=== PATIENT | female | born 1995 ===

== ENCOUNTER 2020-07-30 00:23 | Emergency (ER) | payer SELFPAY ==
--- OUTSIDE RECORDS SUMMARY | 2020-07-30 00:25 | XMS REPORT | Clinical Summary ---
:1995 Author Organization [facility] Address [address] [place] [address] Care Team Providers Name Role Phone Asked, Pcp Primary Care Provider Unavailable Allergies No Known Active Allergies Medications Not on file Active Problems Not on file Social History Tobacco Use Types Packs/Day Years Used Date Never Smoker Alcohol Use Drinks/Week oz/Week Comments Yes Sex Assigned at Date Recorded Not on file Last Filed Vital Signs Not on file Plan of Treatment Health Maintenance Due Date Last Done Comments CHLAMYDIA SCREENING 2013 CERVICAL CANCER SCREENING 2018 INFLUENZA VACCINE 05/08/2020 Results Not on fileafter 07/30/2019 Advance Directives For more information, please contact: [phone] Type Date Recorded 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
[2020-07-30 02:05] LABS: Absolute Lymphocytes (CBC) 1.2 K/uL (0.7-4.9); Basophils % 0.5 % (0-1.3); Hematocrit 38.6 % (36.0-45.0); Lymphocytes % 16.1 % (15.3-44.8); MPV 8.8 fL (7.6-11.3); RBC Red Blood Cell Count 4.27 M/uL (3.86-4.86)
[2020-07-30 02:07] LABS: Protime INR 1.18
[2020-07-30 02:20] LABS: Barbiturates NEGATIVE (NEGATIVE); Benzodiazepines NEGATIVE (NEGATIVE); Cocaine NEGATIVE (NEGATIVE); METHAMPHETAM NEGATIVE (NEGATIVE); Methadone NEGATIVE (NEGATIVE); Opiates NEGATIVE (NEGATIVE); Phencyclidine NEGATIVE (NEGATIVE); THC Cannibis POSITIVE (NEGATIVE)
[2020-07-30 02:23] LABS: ALT/SGPT 17 U/L (12-78); AST/SGOT 17 U/L (15-37); Albumin 4.3 g/dL (3.4-5.0); Alkaline Phosphatase 72 U/L (45-117); BUN Blood Urea Nitrogen 7 mg/dL (7-18); Bicarbonate 26 mmol/L (21-32); Bilirubin Direct < 0.1 mg/dL (0-0.2); Bilirubin Total 0.2 mg/dL (0.2-1.0); Glucose Level 93 mg/dL (74-106); Potassium 3.8 mmol/L (3.5-5.1); Protein, Total 8.4 g/dL (6.4-8.2); Sodium Level 140 mmol/L (136-145)
[2020-07-30 04:12] LABS: Urine Blood 3+ (NEG); Urine Glucose NEGATIVE (NEG); Urine Protein 3+ (NEG); Urine Specific Gravity >1.030 (1.005-1.030); Urine pH 5.5 (5.0-7.0)
--- NOTE | 2020-07-30 04:41 | EDPHYS ---
Physician Documentation [facility] Name: Jonna Willams Age: 24 yrs Sex: Female : 1995 Arrival Date: 07/30/2020 Time: 00:24 Bed 17 Private MD: ED Physician Lenny Trevino HPI: 07/30 04:50 This 24 yrs old Unknown Female presents to ER via Ambulatory with complaints of tw4 Suicidal Ideation. 04:50 The patient presents to the emergency department with anxiety, over money, over a tw4 relationship, over school, depression, over a , over money, over a relationship. Onset: The symptoms/episode began/occurred today. Past psychiatric history: Prior diagnosis: depression. 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 - Social history:: Smoking status: Patient denies any tobacco usage or history of. Patient uses street drugs, marijuana. ROS: 06:27 Constitutional: Negative for fever, chills, and weight loss, Eyes: Negative for injury, tw4 pain, redness, and discharge, Cardiovascular: Negative for chest pain, palpitations, and edema, Respiratory: Negative for shortness of breath, cough, wheezing, and pleuritic chest pain, Abdomen/GI: Negative for abdominal pain, nausea, vomiting, diarrhea, and constipation, Back: Negative for injury and pain, MS/Extremity: Negative for injury and deformity, Skin: Negative for injury, rash, and discoloration, Neuro: Negative for headache, weakness, numbness, tingling, and seizure. 06:27 Psych: Positive for anxiety, depression, Negative for drug dependence, alcohol dependence, auditory hallucinations, visual hallucinations, homicidal ideation, insomnia, suicide gesture, suicidal ideation. Exam: 06:27 Constitutional: This is a well developed, well nourished patient who is awake, alert, tw4 and in no acute distress. Head/Face: Normocephalic, atraumatic. Chest/axilla: Normal chest wall appearance and motion. Nontender with no deformity. No lesions are appreciated. Cardiovascular: Regular rate and rhythm with a normal S1 and S2. No gallops, murmurs, or rubs. Normal PMI, no JVD. No pulse deficits. Respiratory: Lungs have equal breath sounds bilaterally, clear to auscultation and percussion. No rales, rhonchi or wheezes noted. No increased work of breathing, no retractions or nasal flaring. Abdomen/GI: Soft, non-tender, with normal bowel sounds. No distension or tympany. No guarding or rebound. No evidence of tenderness throughout. Back: No spinal tenderness. No costovertebral tenderness. Full range of motion. Skin: Warm, dry with normal turgor. Normal color with no rashes, no lesions, and no evidence of cellulitis. MS/ Extremity: Pulses equal, no cyanosis. Neurovascular intact. Full, normal range of motion. Neuro: Awake and alert, GCS 15, oriented to person, place, time, and situation. Cranial nerves II-XII grossly intact. Motor strength 5/5 in all extremities. Sensory grossly intact. Cerebellar exam normal. Normal gait. 06:27 Psych: Behavior/mood is pleasant, cooperative, depressed, Affect is calm, Oriented to person, place, time, Patient has no thoughts/intents to harm self or others. Judgement / Insight is normal. Vital Signs: 00:42 BP 119 / 63; Pulse 74; Resp 18; Temp 98.6(O); Pulse Ox 100% on R/A; Weight 54.43 kg; tt3 Height 5 ft. 4 in. (162.56 cm); Pain 0/10; 00:42 Body Mass Index 20.60 (54.43 kg, 162.56 cm) tt3 MDM: 00:45 Patient medically screened. tw4 06:40 Differential diagnosis: depression. Data reviewed: vital signs, nurses notes. Data tw4 interpreted: Pulse oximetry: Interpretation:. Counseling: I had a detailed discussion with the patient and/or guardian regarding: the historical points, exam findings, and any diagnostic results supporting the discharge/admit diagnosis. 07/30 00:29 Order name: Acetaminophen; Complete Time: 03:11 tw4 07/30 03:11 Interpretation: Within normal limits: ACETA < 2.0. tw4 07/30 00:29 Order name: Basic Metabolic Panel; Complete Time: 03:11 tw4 07/30 03:12 Interpretation: Normal except: CL 108; GFR 87. 07/30 00:29 Order name: CBC with Diff; Complete Time: 03:11 07/30 03:12 Interpretation: Normal except: KARTIK% 75.2. 07/30 00:29 Order name: ETOH Level; Complete Time: 03:11 07/30 03:12 Interpretation: Within normal limits: ETOH < 10. 07/30 00:29 Order name: Hepatic Function; Complete Time: 03:11 07/30 03:12 Interpretation: Normal except: TP 8.4; GLOB 4.1; A/G 1.0. 07/30 00:29 Order name: PT-INR; Complete Time: 03:11 07/30 03:12 Interpretation: Normal except: PT 13.9. 07/30 00:29 Order name: Ptt, Activated; Complete Time: 03:11 07/30 03:12 Interpretation: Within normal limits: PTT 34.0. 07/30 00:29 Order name: Salicylate; Complete Time: 03:11 07/30 03:12 Interpretation: Normal except: TODD 2.7. 07/30 00:29 Order name: Urine Drug Screen; Complete Time: 03:11 07/30 03:12 Interpretation: Normal except: THC POSITIVE. 07/30 00:29 Order name: EKG; Complete Time: 00:30 07/30 00:29 Order name: EKG - Nurse/Tech; Complete Time: 01:59 07/30 00:29 Order name: IV Saline Lock; Complete Time: 02:32 07/30 02:19 Order name: Urine Dipstick--Ancillary (enter results); Complete Time: 04:49 07/30 04:49 Interpretation: Normal except: UPROT 3+; UBLD 3+; UKET 1+. 07/30 02:19 Order name: Urine --Ancillary (enter results); Complete Time: 04:49 07/30 04:49 Interpretation: Normal except: USPGR >1.030. 07/30 00:29 Order name: Labs collected and sent; Complete Time: 02:32 07/30 00:29 Order name: Urine Dipstick-Ancillary (obtain specimen); Complete Time: 07/30 00:29 Order name: Urine Test (obtain specimen); Complete Time: EC:39 Rate is 67 beats/min. Rhythm is regular. QRS [place] is Normal. MD interval is normal. QRS tw4 interval is normal. QT interval is normal. No Q waves. T waves are Normal. No ST changes noted. Clinical impression: Sinus arrythmia. Interpreted by me. Reviewed by me. Administered Medications: No medications were administered Disposition: 07/30/20 04:40 Discharged to Home. Impression: Adjustment disorder with depressed mood. - Condition is Stable. - Discharge Instructions: Adjustment Disorder, Adult. - Medication Reconciliation Form, Thank You Letter, Antibiotic Education, Prescription Opioid Use form. - Follow up: Private Physician; When: Upon discharge from the Emergency Department; Reason: Recheck today's complaints, Continuance of care, Re-evaluation by your physician. - Problem is new. - Symptoms have improved. Signatures: Dispatcher [employer] EDAmanda Barros, RN RN Lenny Pizano MD MD tw4 Jing Ramirez RN RN ll2 Corrections: (The following items were deleted from the chart) 04:59 04:40 07/30/2020 04:40 Discharged to Home. Impression: Adjustment disorder with ll2 depressed mood. Condition is Stable. Forms are Medication Reconciliation Form, Thank You Letter, Antibiotic Education, Prescription Opioid Use. Follow up: Private Physician; When: Upon discharge from the Emergency Department; Reason: Recheck today's complaints, Continuance of care, Re-evaluation by your physician. Problem is new. Symptoms have improved. tw4
--- NOTE | 2020-07-30 04:41 | ER ---
Nurse's Notes [facility] Name: Jonna Willams Age: 24 yrs Sex: Female : 1995 Arrival Date: 07/30/2020 Time: 00:24 Bed 17 Private MD: Diagnosis: Adjustment disorder with depressed mood Presentation: 07/30 00:57 Chief complaint: Patient states: she was upset and said she wanted to kill herself so bb her brother called the police who told her to come to the ED pt said she was depressed and she said it but she would not make an attempt to kill herself. If she was going to do it she would have a long time ago. Coronavirus screen: At this time, the client does not indicate any symptoms associated with coronavirus-19. Ebola Screen: No symptoms or risks identified at this time. Initial Sepsis Screen: Does the patient meet any 2 criteria? No. Patient's initial sepsis screen is negative. Does the patient have a suspected source of infection? No. Patient's initial sepsis screen is negative. Risk Assessment: Do you want to hurt yourself or someone else? Patient reports no desire to harm self or others. Onset of symptoms is unknown. 00:57 Method Of Arrival: Ambulatory bb 00:57 Acuity: MILLICENT 2 bb 01:03 Note pt states she is trying to build a relationship with her mom and just needs her bb mom. Triage Assessment: 01:01 General: Appears in no apparent distress. Behavior is cooperative, crying. Pain: Denies bb pain. Neuro: Level of Consciousness is awake, alert, obeys commands, Oriented to person, place, time, situation. Cardiovascular: No deficits noted. Respiratory: Respiratory effort is even, unlabored, Respiratory pattern is regular. GI: No signs and/or symptoms were reported involving the gastrointestinal system. Derm: Skin is dry, Skin is normal, Skin temperature is warm. Musculoskeletal: Circulation, motion, and sensation intact. 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 - Social history:: Smoking status: Patient denies any tobacco usage or history of. Patient uses street drugs, marijuana. Screenin:04 Abuse screen: Denies threats or abuse. Nutritional screening: No deficits noted. bb Tuberculosis screening: No symptoms or risk factors identified. Fall Risk None identified. Assessment: 01:04 Reassessment: No changes from previously documented assessment. see triage assessment. bb 01:30 Reassessment: Dr Trevino at bedside for pt evaluation. bb 01:50 General: Appears in no apparent distress. Behavior is calm, cooperative, appropriate ea for age, Pt denies SI and HI. . Neuro: Level of Consciousness is awake, alert, obeys commands, Oriented to person, place, time, situation. Respiratory: Airway is patent Respiratory effort is even, unlabored, Respiratory pattern is regular, symmetrical. Derm: Skin is pink, warm \T\ dry. 02:50 Reassessment: Patient and/or family updated on plan of care and expected duration. Pain ea level reassessed. Patient is alert, oriented x 3, equal unlabored respirations, skin warm/dry/pink. 04:00 Reassessment: Patient and/or family updated on plan of care and expected duration. Pain ll2 level reassessed. Patient is alert, oriented x 3, equal unlabored respirations, skin warm/dry/pink. Psych: 01:02 Subjective: Patient's mood is sad. Objective: Patient is cooperative, Speech is normal, bb Affect is appropriate. Interventions: Removed personal items and placed in bag. Patient placed in hospital gown. Suicide Risk Assessment: Sad Person Scale: Sex of patient: Female: Score 0 points. Age of patient: Score 1 point if patient 15-34. Depression: Score 1 point if signs of depression are present. Social Support: Score 1 point if social support is lacking and/or unavailable. TOTAL POINTS: If total points are 3-4, proposed clinical action is close follow-up/consider hospitalization. 01:50 Safety Checks: Personal items have been removed. Door is open. No visitors are present ea at this time. Pt denies substance abuse. 02:31 Commitment: Pt denies SI. ea Vital Signs: 00:42 BP 119 / 63; Pulse 74; Resp 18; Temp 98.6(O); Pulse Ox 100% on R/A; Weight 54.43 kg; tt3 Height 5 ft. 4 in. (162.56 cm); Pain 0/10; 00:42 Body Mass Index 20.60 (54.43 kg, 162.56 cm) tt3 ED Course: 00:24 Patient arrived in ED. am2 00:29 Lenny Trevino MD is Attending Physician. tw4 01:01 Triage completed. bb 01:01 Arm band placed on Patient placed in an exam room, on a stretcher. bb 01:04 Patient has correct armband on for positive identification. bb 02:00 Urine collected: clean catch specimen, cloudy, blood tinged, EKG done, by ED staff, tt3 reviewed by Lenny Trevino MD. 03:00 No provider procedures requiring assistance completed. Inserted saline lock: 22 gauge ll2 in right antecubital area, using aseptic technique. IV discontinued, intact, bleeding controlled, No redness/swelling at site. Pressure dressing applied. 03:59 Pt talking to zulily screener via iPad. tt3 Administered Medications: No medications were administered Outcome: 04:40 Discharge ordered by . tw4 04:58 Discharged to home ambulatory. ll2 04:58 Condition: stable 04:58 Discharge instructions given to patient, Instructed on discharge instructions, follow up and referral plans. Demonstrated understanding of instructions, follow-up care. 04:59 Patient left the ED. ll2 Signatures: Amanda Mai, RN RN Lexi Polanco am2 Nae Tamayo, RN eLnny Styles ea, MD MD tw4 Jing Ramirez RN RN ll2 Marvel Medina tt3
[2020-07-30 05:22] VITALS: BP 119/63; TEMP 98.6; O2SAT 100
--- NOTE | 2020-07-31 09:34 | EKG ---
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
== END 2020-07-30 04:59 | disposition home or self-care (01) ==
LOC: ER 00:23
DX: F43.21 Adjustment disorder with depressed mood (principal)
CPT/HCPCS: 36415; 80048; 80076; 80307; 80320; 80329; 81003; 81025; 85025; 85610; 85730; 93005; 99284

== ENCOUNTER 2021-10-01 03:35 | Emergency (ER) | payer OTHER ==
[2021-10-01 04:09] LABS: Urine Blood Negative (Negative); Urine Glucose Negative (Negative); Urine Protein Negative (Negative); Urine pH 6.5 (5.0-7.0)
[2021-10-01] MEDS ORDERED: MORPHINE 2 MG/ML SYR ONE (04:43)
[2021-10-01] MEDS ORDERED: CEFTRIAXONE 1000 MG/VIAL ONE (04:43)
[2021-10-01] MEDS ORDERED: NA CHLORIDE 0.9% 1,000 ML ONE (04:44)
[2021-10-01] MEDS ORDERED: ONDANSETRON 4 MG/2 ML VIAL ONE (04:44)
[2021-10-01] MEDS ORDERED: NA CHLORIDE 0.9% 50 ML ONE (04:44)
[2021-10-01 04:47] LABS: Absolute Lymphocytes (CBC) 2.5 K/uL (0.7-4.9); Basophils % 0.1 % (0-1.3); Hematocrit 36.3 % (36.0-45.0); Lymphocytes % 36.3 % (15.3-44.8); MPV 8.1 fL (7.6-11.3); RBC Red Blood Cell Count 4.07 M/uL (3.86-4.86)
[2021-10-01 05:02] LABS: ALT/SGPT 17 U/L (12-78); AST/SGOT 10 U/L (15-37); Albumin 3.7 g/dL (3.4-5.0); Alkaline Phosphatase 67 U/L (45-117); BUN Blood Urea Nitrogen 7 mg/dL (7-18); Bicarbonate 27 mmol/L (21-32); Bilirubin Direct < 0.1 mg/dL (0-0.2); Bilirubin Total 0.2 mg/dL (0.2-1.0); Glucose Level 80 mg/dL (74-106); Lipase 72 U/L (73-393); Potassium 3.6 mmol/L (3.5-5.1); Protein, Total 7.8 g/dL (6.4-8.2); Sodium Level 140 mmol/L (136-145)
[2021-10-01] MEDS ORDERED: CIPROFLOXACIN HCL 500 MG TAB ONE (05:27)
--- NOTE | 2021-10-01 07:00 | RAD REPORT ---
EXAM DESCRIPTION: CTAbdomen Pelvis W Contrast - 10/01/2021 6:44 am CLINICAL HISTORY: ABD PAIN COMPARISON: No comparisonsTransvaginal Study Probe dated 10/01/2021 TECHNIQUE: CT of the abdomen and pelvis was performed. All CT scans are performed using dose optimization technique as appropriate and may include automated exposure control or mA/KV adjustment according to patient size. FINDINGS: Lower chest: No acute abnormality. Liver: No acute abnormality or suspicious lesions. Biliary: No biliary ductal dilatation. Stomach: No significant focal abnormality. Duodenum: No significant focal abnormality. Pancreas: No significant abnormality. Spleen: No significant abnormality. Adrenal: No suspicious lesions. Kidney/ureter: No hydronephrosis. No renal calculi. Retroperitoneum: No retroperitoneal adenopathy. Vascular: No aneurysm. Bowel: No significant focal abnormality. Normal appendix. Peritoneum: Small volume of free fluid. Bladder: Grossly unremarkable. Reproductive: No adnexal masses. Bones: No acute fracture. Other: n/a IMPRESSION: No acute intra-abdominal or pelvic finding. Normal appendix.
--- NOTE | 2021-10-01 07:07 | EDPHYS ---
Physician Documentation [facility] Name: Jonna Willams Age: 26 yrs Sex: Female : 1995 Arrival Date: 10/01/2021 Time: 03:38 Bed 9 Private MD: ED Physician Abdiel Kelly HPI: 10/01 04:39 This 26 yrs old Unknown Female presents to ER via Ambulatory with complaints of dilia Abdominal Pain. 04:39 The patient presents with abdominal pain in the lower abdomen, abdominal distention in dilia the lower abdomen. Onset: The symptoms/episode began/occurred 2 day(s) ago. The symptoms do not radiate. Associated signs and symptoms: none. The symptoms are described as crampy. Modifying factors: The symptoms are alleviated by nothing, the symptoms are aggravated by nothing. Severity of pain: At its worst the pain was mild in the emergency department the pain. The patient has not experienced similar symptoms in the past. 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 - Social history:: Smoking status: Patient denies any tobacco usage or history of. - Family history:: not pertinent. ROS: 04:39 Constitutional: Negative for fever, chills, and weight loss, Eyes: Negative for injury, dilia pain, redness, and discharge, ENT: Negative for injury, pain, and discharge, Neck: Negative for injury, pain, and swelling, Cardiovascular: Negative for chest pain, palpitations, and edema, Respiratory: Negative for shortness of breath, cough, wheezing, and pleuritic chest pain, Back: Negative for injury and pain, : Negative for injury, bleeding, discharge, and swelling, MS/Extremity: Negative for injury and deformity, Skin: Negative for injury, rash, and discoloration, Neuro: Negative for headache, weakness, numbness, tingling, and seizure, Psych: Negative for depression, anxiety, suicide ideation, homicidal ideation, and hallucinations, Allergy/Immunology: Negative for hives, rash, and allergies, Endocrine: Negative for neck swelling, polydipsia, polyuria, polyphagia, and marked weight changes, Hematologic/Lymphatic: Negative for swollen nodes, abnormal bleeding, and unusual bruising. 04:39 Abdomen/GI: Positive for abdominal pain, of the right lower quadrant and left lower quadrant. Exam: 04:39 Constitutional: This is a well developed, well nourished patient who is awake, alert, dilia and in no acute distress. Head/Face: Normocephalic, atraumatic. Eyes: Pupils equal round and reactive to light, extra-ocular motions intact. Lids and lashes normal. Conjunctiva and sclera are non-icteric and not injected. Cornea within normal limits. Periorbital areas with no swelling, redness, or edema. ENT: Nares patent. No nasal discharge, no septal abnormalities noted. Tympanic membranes are normal and external auditory canals are clear. Oropharynx with no redness, swelling, or masses, exudates, or evidence of obstruction, uvula midline. Mucous membranes moist. Neck: Trachea midline, no thyromegaly or masses palpated, and no cervical lymphadenopathy. Supple, full range of motion without nuchal rigidity, or vertebral point tenderness. No Meningismus. Chest/axilla: Normal chest wall appearance and motion. Nontender with no deformity. No lesions are appreciated. Cardiovascular: Regular rate and rhythm with a normal S1 and S2. No gallops, murmurs, or rubs. Normal PMI, no JVD. No pulse deficits. Respiratory: Lungs have equal breath sounds bilaterally, clear to auscultation and percussion. No rales, rhonchi or wheezes noted. No increased work of breathing, no retractions or nasal flaring. Back: No spinal tenderness. No costovertebral tenderness. Full range of motion. Skin: Warm, dry with normal turgor. Normal color with no rashes, no lesions, and no evidence of cellulitis. MS/ Extremity: Pulses equal, no cyanosis. Neurovascular intact. Full, normal range of motion. Neuro: Awake and alert, GCS 15, oriented to person, place, time, and situation. Cranial nerves II-XII grossly intact. Motor strength 5/5 in all extremities. Sensory grossly intact. Cerebellar exam normal. Normal gait. Psych: Awake, alert, with orientation to person, place and time. Behavior, mood, and affect are within normal limits. 04:39 Abdomen/GI: Inspection: abdomen appears normal, Bowel sounds: normal, Palpation: moderate abdominal tenderness, in the suprapubic area, right lower quadrant and left lower quadrant, Liver: no appreciated palpable abnormalities, Hernia: not appreciated. Vital Signs: 03:55 BP 114 / 61; Pulse 88; Resp 16; Temp 98.5; Pulse Ox 100% on R/A; Weight 58.97 kg; tw5 Height 5 ft. 4 in. (162.56 cm); Pain 9/10; 04:53 BP 104 / 67; Pulse 67; Resp 14; Pulse Ox 100% on R/A; tw5 06:34 BP 134 / 80; Pulse 94; Pulse Ox 96% on R/A; tw5 03:55 Body Mass Index 22.31 (58.97 kg, 162.56 cm) tw5 MDM: 04:19 Patient medically screened. dilia 04:43 Differential diagnosis: appendicitis, bowel obstruction, non-specific abd pain, dilia pancreatitis, Pelvic Inflammatory Disease, Pyelonephritis, Tubal Ovarian Abcess, Ureterolithiasis, urinary tract infection. Data reviewed: vital signs, nurses notes, lab test result(s), radiologic studies, CT scan, ultrasound. Data interpreted: engine monitor: rate is 88 beats/min, rhythm is regular, Pulse oximetry: on room air is 100 %. Counseling: I had a detailed discussion with the patient and/or guardian regarding: the historical points, exam findings, and any diagnostic results supporting the discharge/admit diagnosis, lab results, radiology results. 10/01 03:50 Order name: Basic Metabolic Panel tw5 10/01 03:50 Order name: CBC with Diff; Complete Time: 05:08 tw5 10/01 03:50 Order name: Hepatic Function; Complete Time: 05:08 tw5 10/01 03:50 Order name: Lipase; Complete Time: 05:08 tw5 10/01 03:50 Order name: Basic Metabolic Panel; Complete Time: 05:08 EDMI 10/01 04:08 Order name: Urine Dipstick-Ancillary; Complete Time: 04:17 EDMI 10/01 04:11 Order name: Urine --Ancillary (enter results); Complete Time: 04:17 tw5 10/01 04:17 Order name: Urine Microscopic Only la1 10/01 04:17 Order name: Urine Culture la1 10/01 04:39 Order name: US Transvaginal Study (Probe); Complete Time: 07:13 dilia 10/01 04:39 Order name: CT Abd/Pelvis - IV Contrast Only; Complete Time: 07:13 dilia 10/01 04:44 Order name: Sed Rate; Complete Time: 05:19 [facility] 10/01 03:50 Order name: IV Saline Lock; Complete Time: 04:16 tw5 10/01 03:50 Order name: Labs collected and sent; Complete Time: 04:16 tw5 10/01 03:50 Order name: Urine Dipstick-Ancillary (obtain specimen); Complete Time: 04:16 tw5 Administered Medications: 04:54 Drug: morphine 2 mg Route: IVP; Site: right antecubital; tw5 06:35 Follow up: Response: No adverse reaction; Pain is decreased; RASS: Alert and Calm (0) tw5 04:54 Drug: Zofran (Ondansetron) 4 mg Route: IVP; Site: right antecubital; tw5 06:35 Follow up: Response: No adverse reaction tw5 04:54 Drug: Rocephin (cefTRIAXone) 1 grams Route: IV; Rate: per protocol; Site: right tw5 antecubital; 06:35 Follow up: Response: No adverse reaction; IV Status: Completed infusion tw5 04:55 Drug: NS 0.9% 1000 ml Route: IV; Rate: 1 bolus; Site: right antecubital; tw5 06:35 Follow up: Response: No adverse reaction; IV Status: Completed infusion tw5 06:35 Drug: Cipro (ciprofloxacin) 500 mg Route: PO; tw5 08:00 Follow up: Response: No adverse reaction iw Disposition Summary: 10/01/21 07:05 Discharge Ordered Location: Home dilia Problem: new dilia Symptoms: have improved dilia Condition: Stable dilia Diagnosis - Pelvic and perineal pain dilia - Abdominal tenderness dilia - UTI/ Urinary tract infection, site not specified dilia Followup: dilia - With: Private Physician - When: 2 - 3 days - Reason: Recheck today's complaints, Continuance of care, Re-evaluation by your physician Followup: dilia - With: - When: 2 - 3 days - Reason: Recheck today's complaints, Continuance of care, Re-evaluation by your physician Discharge Instructions: - Discharge Summary Sheet dilia - Abdominal Pain, Adult dilia - Dysuria dilia - Urinary Tract Infection, Adult dilia - Urinary Tract Infection, Adult, Hzzh-vy-Aozt dilia Forms: - Medication Reconciliation Form dilia - Thank You Letter dilia - Antibiotic Education dilia - Prescription Opioid Use dilia - Work release form iw Prescriptions: - Cipro 500 mg Oral Tablet - take 1 tablet by ORAL route every 12 hours for 7 days; 14 tablet; Refills: 0, dilia Product Selection Permitted - dicyclomine 20 mg Oral Tablet - take 1 tablet by ORAL route 4 times per day; 28 tablet; Refills: 0, Product [facility] Selection Permitted Signatures: Dispatcher [employer] EDMS Abdiel Kelly MD MD cha Attema, Lee, INSTRUCTOR [employer]PAREL MANUFACTURE-C INSTRUCTOR [employer]PAREL [employer]UFACTURE-Cla1 Yonas Brandon, NAVID DIVER'S TENDER tracey1 Alyson Bernard 5 Vicky Stark RN
--- NOTE | 2021-10-01 07:07 | ER ---
Nurse's Notes [facility] Name: Jonna Willams Age: 26 yrs Sex: Female : 1995 Arrival Date: 10/01/2021 Time: 03:38 Bed 9 Private MD: Diagnosis: Pelvic and perineal pain;Abdominal tenderness;UTI/ Urinary tract infection, site not specified Presentation: 10/01 03:55 Chief complaint: Patient states: "I have lower abdominal pain that is hurting like, tw5 really, really bad. Its been going on all day at work.". Coronavirus screen: Vaccine status: Patient reports being unvaccinated. Ebola Screen: Patient negative for fever greater than or equal to 101.5 degrees Fahrenheit, and additional compatible Ebola Virus Disease symptoms Patient denies exposure to infectious person. Patient denies travel to an Ebola-affected area in the 21 days before illness onset. Initial Sepsis Screen: Does the patient meet any 2 criteria? No. Patient's initial sepsis screen is negative. Does the patient have a suspected source of infection? No. Patient's initial sepsis screen is negative. Risk Assessment: Do you want to hurt yourself or someone else? Patient reports no desire to harm self or others. Onset of symptoms was September 30, 2021. 03:55 Method Of Arrival: Ambulatory tw5 03:55 Acuity: MILLICENT 3 tw5 Triage Assessment: 03:57 General: Appears uncomfortable, Behavior is calm, cooperative, appropriate for age. tw5 Pain: Complains of pain in right lower quadrant and left lower quadrant Pain currently is 9 out of 10 on a pain scale. GI: Patient currently denies diarrhea, nausea. 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 - Social history:: Smoking status: Patient denies any tobacco usage or history of. - Family history:: not pertinent. Screenin:34 Abuse screen: Denies threats or abuse. Denies injuries from another. Nutritional tw5 screening: No deficits noted. Tuberculosis screening: No symptoms or risk factors identified. Fall Risk None identified. Assessment: 04:53 Reassessment: Patient appears in no apparent distress at this time. No changes from tw5 previously documented assessment. Patient and/or family updated on plan of care and expected duration. Pain level reassessed. General: Appears in no apparent distress. Pain: Pain currently is 9 out of 10 on a pain scale. 06:34 Reassessment: Patient states feeling better. Patient states symptoms have improved. tw5 08:10 GI: Bowel sounds present X 4 quads. Abd is soft and non tender X 4 quads. iw Vital Signs: 03:55 BP 114 / 61; Pulse 88; Resp 16; Temp 98.5; Pulse Ox 100% on R/A; Weight 58.97 kg; tw5 Height 5 ft. 4 in. (162.56 cm); Pain 9/10; 04:53 BP 104 / 67; Pulse 67; Resp 14; Pulse Ox 100% on R/A; tw5 06:34 BP 134 / 80; Pulse 94; Pulse Ox 96% on R/A; tw5 03:55 Body Mass Index 22.31 (58.97 kg, 162.56 cm) tw5 ED Course: 03:38 Patient arrived in ED. bp1 03:54 Urine collected: clean catch specimen, cloudy. tw5 03:57 Triage completed. tw5 03:57 Arm band placed on left wrist. tw5 03:58 Initial lab(s) drawn, by me, sent to lab. Inserted saline lock: 22 gauge in right tw5 antecubital area, using aseptic technique. Blood collected. 04:16 Alyson Bernard is Primary Nurse. tw5 04:16 Basic Metabolic Panel Sent. tw5 04:16 Basic Metabolic Panel Sent. tw5 04:16 CBC with Diff Sent. tw5 04:16 Hepatic Function Sent. tw5 04:16 Lipase Sent. tw5 04:16 Urine --Ancillary (enter results) Sent. tw5 04:19 Abdiel Kelly MD is Attending Physician. [place] 04:55 Basic Metabolic Panel Sent. tw5 04:55 Hepatic Function Sent. tw5 04:55 Lipase Sent. tw5 06:20 US Transvaginal Study (Probe) In Process Unspecified. EDMS 06:34 Patient has correct armband on for positive identification. Placed in gown. Bed in low tw5 position. Call light in reach. Side rails up X 1. Pulse ox on. NIBP on. Door closed. Noise minimized. Lights dimmed. Warm blanket given. Verbal reassurance given. 06:44 CT Abd/Pelvis - IV Contrast Only In Process Unspecified. EDDC 07:05 Daniel Harper MD is Referral Physician. [place] 07:38 Primary Nurse role handed off by Alyson Bernard 08:07 Vicky Stark, RN is Primary Nurse. iw 08:15 No provider procedures requiring assistance completed. IV discontinued, intact, iw bleeding controlled, No redness/swelling at site. Pressure dressing applied. Administered Medications: 04:54 Drug: morphine 2 mg Route: IVP; Site: right antecubital; tw5 06:35 Follow up: Response: No adverse reaction; Pain is decreased; RASS: Alert and Calm (0) tw5 04:54 Drug: Zofran (Ondansetron) 4 mg Route: IVP; Site: right antecubital; tw5 06:35 Follow up: Response: No adverse reaction tw5 04:54 Drug: Rocephin (cefTRIAXone) 1 grams Route: IV; Rate: per protocol; Site: right tw5 antecubital; 06:35 Follow up: Response: No adverse reaction; IV Status: Completed infusion tw5 04:55 Drug: NS 0.9% 1000 ml Route: IV; Rate: 1 bolus; Site: right antecubital; tw5 06:35 Follow up: Response: No adverse reaction; IV Status: Completed infusion tw5 06:35 Drug: Cipro (ciprofloxacin) 500 mg Route: PO; tw5 08:00 Follow up: Response: No adverse reaction Outcome: 07:05 Discharge ordered by . [place] 08:14 Patient left the ED. [facility] 08:14 Discharged to home ambulatory. iw 08:14 Condition: good 08:14 Discharge instructions given to patient, Instructed on discharge instructions, follow up and referral plans. medication usage, Demonstrated understanding of instructions, follow-up care, medications, Prescriptions given X 2. Signatures: Dispatcher [employer] EDDC Rosibel Qureshi Corey, MD MD cha Williams, Irene, RN RN Yun Ralph [facility] Carlota Batres [facility] Alyson Bernard [facility]
--- NOTE | 2021-10-01 07:11 | RAD REPORT ---
EXAM DESCRIPTION: US - Transvaginal Study Probe - 10/01/2021 6:20 am CLINICAL HISTORY: ABD PAIN Pelvic pain. COMPARISON: No comparisons FINDINGS: The uterus is normal in size, shape and echotexture. The uterus measures 7.8 cm The endometrial stripe measures 8 mm, within normal limits for age Both ovaries are normal in size, shape and echotexture. The right ovary measures 6.9 mL. The left o vary measures 8.3 mL. No ovarian or parovarian lesions. No adnexal masses. Normal Doppler blood flow was demonstrated to both ovaries. No significant pelvic ascites. IMPRESSION: Pelvic ultrasound is within normal limits for age. Bilateral ovarian blood flow is prese nt.
[2021-10-01 08:02] LABS: Urine Bacteria <20 /HPF (<20); Urine RBC <5 /HPF (NONE SEEN); Urine Yeast FEW (NONE SEEN)
[2021-10-01 08:24] VITALS: TEMP 98.5
[2021-10-01 08:28] VITALS: BP 134/80; O2SAT 96
== END 2021-10-01 08:14 | disposition home or self-care (01) ==
LOC: ER 03:35
DX: N39.0 Urinary tract infection, site not specified (principal)
CPT/HCPCS: 96365; 87088; 85025; 87086; 80048; 36415; 81025; 80076; 85652; 83690; 74177; 76830; 96375; 99284; 96366; Q9967; J2270; J7030; J2405; 81003; 81015